=== PATIENT | female | born 1975 | race Caucasian/White ===

== ENCOUNTER 2017-04-27 10:31 | Emergency (ER) | payer OTHER ==
[2017-04-27 11:21] VITALS: BP 110/72
--- NOTE | 2017-04-27 12:17 | UC ---
UC General HPI - HPI Summary HPI Summary: complaint of rash that started on her right arm approx 4 days ago 5-6 skin colored bumps the next day they got red and started to spread now the rash is flat, itchy worse in the heat feels itchy used benadryl , aloe, burn cream without relief several areas on her arm and leg that resolved severely itchy and feels hot - History of Current Complaint Chief Complaint: UCSkin Stated Complaint: RASH Time Seen by Provider: 04/27/17 12:05 Hx Obtained From: Patient - Allergy/Home Medications Allergies/Adverse Reactions: Allergies Allergy/AdvReac Type Severity Reaction Status Date / Time No Known Allergies Allergy Verified 04/27/17 11:11 Home Medications: Home Medications Levothyroxine TAB* [Synthroid 25 MCG TAB*] 1 tab PO DAILY 04/27/17 [History Confirmed 04/27/17] diPHENhydraMINE 2% CREAM(NF) [Benadryl 2% CREAM (NF)] 1 applic TOPICAL TID PRN 04/27/17 [History Confirmed 04/27/17] PMH/Surg Hx/FS Hx/Imm Hx Previously Healthy: Yes Endocrine History: Hypothyroidism - Surgical History Surgical History: None - Family History Known Family History: Negative: Cardiac Disease, Hypertension, Diabetes - Social History Occupation: Employed Full-time Lives: With Family Alcohol Use: Weekly Substance Use Type: None Smoking Status (MU): Never Smoked Tobacco Review of Systems Constitutional: Negative Skin: Rash Eyes: Negative ENT: Negative Respiratory: Negative Cardiovascular: Negative Gastrointestinal: Negative Genitourinary: Negative Motor: Negative Neurovascular: Negative Musculoskeletal: Negative Neurological: Negative Psychological: Negative All Other Systems Reviewed And Are Negative: Yes Physical Exam Triage Information Reviewed: Yes Appearance: No Pain Distress, Well-Nourished Vital Signs: Initial Vital Signs Pulse 79 04/27/17 11:13 Resp 16 04/27/17 11:13 BP 110/72 04/27/17 11:13 Pulse Ox 97 04/27/17 11:13 Vital Signs Reviewed: Yes Eyes: Positive: Conjunctiva Clear ENT: Positive: Pharynx normal, TMs normal Neck: Positive: No Lymphadenopathy Respiratory: Positive: Lungs clear, Normal breath sounds, No respiratory distress, No accessory muscle use Cardiovascular: Positive: RRR, No Murmur, Pulses Normal Abdomen Description: Positive: Nontender, Soft Bowel Sounds: Positive: Present Musculoskeletal: Positive: No Edema Neurological: Positive: Alert Psychological Exam: Normal Skin: Positive: Other - RUE- flat erythematous rash on right arm approx 4x8 cm - some raised areas on the edges Course/Dx - Course Course Of Treatment: exam completed. will treat for probable fungal rash as it is worse with heat and itchy and slowly spreading - Differential Dx - Multi-Symptom Provider Diagnoses: tinea Discharge - Discharge Plan Condition: Stable Disposition: HOME Prescriptions: Clotrimazole/Betamethasone* [Lotrisone Cream*] 1 applic TOPICAL BID #1 tube Patient Education Materials: Tinea Corporis (ED) Referrals: Barbie Wall NP [Primary Care Provider] - Additional Instructions: Please start lotrisone as directed Increase fluids and rest Take acetaminophen or ibuprofen for fever or pain Please review your discharge instructions. If your symptoms do not improve please call your primary care provider or return to urgent care. .
== END 2017-04-27 12:31 | disposition home or self-care (01) ==
LOC: UCEAST 10:31
DX: B35.9 Dermatophytosis, unspecified (principal); E03.9 Hypothyroidism, unspecified
CPT/HCPCS: 99212; G0463

== ENCOUNTER 2017-11-24 17:45 | Emergency (ER) | payer BC, OTHER ==
[2017-11-24 17:50] VITALS: BP 117/56
--- NOTE | 2017-11-24 17:53 | UC ---
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 Her partners has confirmed Influenza B. Francine did get a flu vaccine and has no symptoms - History of Current Complaint Chief Complaint: UCGeneralIllness Stated Complaint: FLU Time Seen by Provider: 11/24/17 17:47 Hx Obtained From: Patient Hx Last Menstrual Period: 2 DAYS AGO ?: No Severity Currently: None Pain Intensity: 0 Pain Scale Used: 0-10 Numeric Associated Signs & Symptoms: Positive: Negative Related Hx: Possible Flu/Infectious Exposure - Allergy/Home Medications Allergies/Adverse Reactions: Allergies Allergy/AdvReac Type Severity Reaction Status Date / Time No Known Allergies Allergy Verified 11/24/17 17:49 Home Medications: Home Medications Fluvoxamine (NF) [Luvox (NF)] 100 mg PO DAILY 11/24/17 [History Confirmed ] PMH/Surg Hx/FS Hx/Imm Hx Previously Healthy: No Endocrine History: Hypothyroidism Psychological History: Depression - Surgical History Surgical History: None - Family History Known Family History: Negative: Cardiac Disease, Hypertension, Diabetes - Social History Occupation: Employed Full-time Lives: With Family Alcohol Use: Occasionally Substance Use Type: None Smoking Status (MU): Never Smoked Tobacco Review of Systems Constitutional: Negative Skin: Negative Eyes: Negative ENT: Negative Respiratory: Negative Cardiovascular: Negative Gastrointestinal: Negative Genitourinary: Negative Motor: Negative Neurovascular: Negative Musculoskeletal: Negative Neurological: Negative Psychological: Negative Is Patient Immunocompromised?: No All Other Systems Reviewed And Are Negative: Yes Physical Exam Triage Information Reviewed: Yes Appearance: Well-Appearing, No Pain Distress, Well-Nourished Vital Signs: Initial Vital Signs Temp 97.8 F 11/24/17 17:46 Pulse 84 11/24/17 17:46 Resp 16 11/24/17 17:46 BP 117/56 11/24/17 17:46 Pulse Ox 99 11/24/17 17:46 Vital Signs Reviewed: Yes Eye Exam: Normal Eyes: Positive: Conjunctiva Clear ENT Exam: Normal ENT: Positive: Normal ENT inspection, Hearing grossly normal. Negative: Nasal congestion, Trismus, Muffled voice, Hoarse voice, Dental tenderness, Sinus tenderness Dental Exam: Normal Neck exam: Normal Neck: Positive: Supple, Nontender Respiratory Exam: Normal Respiratory: Positive: Chest non-tender, No respiratory distress, No accessory muscle use Cardiovascular Exam: Normal Cardiovascular: Positive: RRR, Pulses Normal, Brisk Capillary Refill Musculoskeletal Exam: Normal Musculoskeletal: Positive: Strength Intact, ROM Intact, No Edema Neurological Exam: Normal Neurological: Positive: Alert Psychological Exam: Normal Skin Exam: Normal Flu Course/Dx - Course Course Of Treatment: 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
== END 2017-11-24 18:02 | disposition home or self-care (01) ==
LOC: UCEAST 17:45
DX: Z20.828 Contact with and (suspected) exposure to other viral communicable diseases (principal); F32.9 Major depressive disorder, single episode, unspecified
CPT/HCPCS: 99212; G0463

== ENCOUNTER 2018-04-15 07:05 | Emergency (ER) | payer BC, OTHER ==
[2018-04-15 07:24] VITALS: BP 130/86
--- NOTE | 2018-04-15 07:46 | UC ---
Luz Marina Rivers Jade, scribed for Galindo Hernandez MD on 04/15/18 at 0728 . Complaint Female HPI - HPI Summary HPI Summary: Patient is a 42 y/o female who presents to [facility] c/o vaginal discharge. She states she began to have the discharge 2 weeks ago, which was also 2 weeks after a menstrual cycle. The discharge is described as a brownish liquid with a foul odor. Patient denies any pain or other symptoms. She has a PMHx of herpes, hypothyroidism, and OCD. Patient denies any smoking, and occasionally uses alcohol. FHx of breast and ovarian cancers. - History Of Current Complaint Stated Complaint: VAGINAL DISCARGE Time Seen by Provider: 04/15/18 07:09 Hx Obtained From: Patient Hx Last Menstrual Period: 2 DAYS AGO Onset/Duration: Gradual Onset, Lasting Weeks - 2, Still Present Timing: Constant Severity Currently: None Pain Intensity: 0 Pain Scale Used: 0-10 Numeric Character: Not Applicable Aggravating Factor(s): Nothing Alleviating Factor(s): Nothing Associated Signs And Symptoms: Positive: Negative Related Hx: Prior STD Hx - Herpes - Allergies/Home Medications Allergies/Adverse Reactions: Allergies Allergy/AdvReac Type Severity Reaction Status Date / Time No Known Allergies Allergy Verified 11/24/17 17:49 PMH/Surg Hx/FS Hx/Imm Hx Endocrine History: Hypothyroidism GI/ History: Other Other GI/ History: Herpes Other Neurological History: OCD Psychological History: Other - OCD Other Psychological History: OCD - Surgical History Surgical History: Yes Surgery Procedure, Year, and Place: breast biopsy - Family History Known Family History: Positive: Other - Breast and ovarian cancer Negative: Cardiac Disease, Hypertension, Diabetes - Social History Alcohol Use: Occasionally Substance Use Type: None Smoking Status (MU): Never Smoked Tobacco Review of Systems Constitutional: Negative - Fever Genitourinary: Vaginal/Penile Discharge - Brownish, liquid, odorous All Other Systems Reviewed And Are Negative: Yes Physical Exam - Summary Physical Exam Summary: VITAL SIGNS: Reviewed. GENERAL: Patient is a well-developed and nourished FEMALE who is lying comfortable in the stretcher. Patient is not in any acute respiratory distress. HEAD AND FACE: Normocephalic EYES: PERRLA, EOMI x 2. EARS: Hearing grossly intact. MOUTH: Oropharynx within normal limits. NECK: Supple, trachea is midline, no adenopathy, no JVD, no carotid bruit. CHEST: Symmetric, no tenderness at palpation LUNGS: Clear to auscultation bilaterally. No wheezing or crackles. CVS: Regular rate and rhythm, S1 and S2 present, no murmurs or gallops appreciated. ABDOMEN: Soft, non-tender. Bowel sounds are normal. No abdominal abnormal pulsations. EXTREMITIES: Full ROM in all major joints, no edema, no cyanosis or clubbing. NEURO: Alert and oriented x 3. No acute neurological deficits. Speech is normal and follows commands. 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 External genitalia: within normal limits. No rashes, lesions or ecchymosis. Speculum exam: vaginal gomes with no lesions, masses, or rashes. Cervix normal. No CMTs. No adnexal masses. FB in vagina. All cultures were collected and send to the lab. Triage Information Reviewed: Yes Vital Signs: Initial Vital Signs Temp 98.3 F 04/15/18 07:21 Pulse 124 04/15/18 07:21 Resp 14 04/15/18 07:21 BP 130/86 04/15/18 07:21 Pulse Ox 94 04/15/18 07:21 Vital Signs Reviewed: Yes Complaint Female Dx - Course Course Of Treatment: During the physical exam with front of the patient had a tampon in the vagina. I was able to remove the tampon and there was no signs of an infection within the vagina gomes. Therefore the patient will be discharged home with follow-up with PCP As needed. She was instructed to return to the urgent care, possibly the PCP or the ED with the patient develops any other type of discharge, pain, or any other symptoms. She understands and agrees. - Differential Dx/Diagnosis Provider Diagnoses: Vagina foreign body Discharge - Sign-Out/Discharge Documenting (check all that apply): Discharge/Admit/Transfer - Discharge Plan Condition: Stable Disposition: HOME Patient Education Materials: Vaginal Foreign Body (ED) Referrals: Barbie Wall NP [Primary Care Provider] - Additional Instructions: FOLLOW UP WITH YOUR PRIMARY CARE PROVIDER WITHIN ONE WEEK FOR HIGH BLOOD PRESSURE NOTED TODAY. RETURN TO URGENT CARE FOR ANY WORSENING OR NEW SYMPTOMS. - Billing Disposition and Condition Condition: STABLE Disposition: Home The documentation as recorded by the Luz Marina parsons Jade accurately reflects the service I personally performed and the decisions made by me, Galindo Hernandez MD.
== END 2018-04-15 07:50 | disposition home or self-care (01) ==
LOC: UCEAST 07:05
DX: T19.2XXA Foreign body in vulva and vagina, initial encounter (principal); X58.XXXA Exposure to other specified factors, initial encounter; Y92.9 Unspecified place or not applicable
CPT/HCPCS: 99212; G0463